=== PATIENT | female | born 1985 | race American Indian/Alaskan Native ===

== ENCOUNTER 2017-05-21 09:11 | Outpatient (CLI) | payer OTHER ==
--- NOTE | 2017-05-21 11:00 | Ultrasound Report ---
ULTRASOUND PELVIC COMPLETE ULTRASOUND TRANSVAGINAL HISTORY: Abnormal uterine and vaginal bleeding. COMPARISON: 11/12/15. TECHNIQUE: Transabdominal and transvaginal ultrasound with color doppler interrogation. FINDINGS: Uterus: The uterus is retroflexed. The uterus measures 7.5 x 4.8 x 6.6 cm. No uterine mass is identified. Normal cervix. Endometrium: 3.3 mm. No evidence for endometrial mass, polyp or fluid collection. Right ovary: 4.2 x 1.9 x 3.0 cm. Left ovary: 3.2 x 2.0 x 3.7 cm. The ovarian follicles are peripherally located and are slightly prominent which can be associated with polycystic ovarian syndrome. No pelvic fluid or mass is identified. Normal color doppler interrogation. IMPRESSION: Unremarkable transabdominal and transvaginal pelvic ultrasounds. Findings suggestive of polycystic ovarian syndrome. No change since 11/12/15.
== END 2017-05-21 09:12 | disposition home or self-care (01) ==
LOC: US 09:11
PROVIDERS: ATTEND Obstetrics & Gynecology
DX: N93.8 Other specified abnormal uterine and vaginal bleeding (principal)
CPT/HCPCS: 76830; 76856

== ENCOUNTER 2018-01-06 07:33 | Day surgery (SDC) | payer OTHER ==
[2018-01-06] MEDS ORDERED: LACTATED RINGERS 1,000 ML IV ONE (08:07)
[2018-01-06] MEDS ORDERED: ZOFRAN IV PRN (08:52)
[2018-01-06] MEDS ORDERED: DILAUDID IV PRN (08:52)
[2018-01-06] MEDS ORDERED: DEMEROL IV PRN (08:52)
--- NOTE | 2018-01-06 08:57 | Short Stay Summary ---
Short Stay Documentation Date of service: 01/06/18 Narrative H&P: Pt is a 32yo BF presents for surgical evaluation and treatment of prolonged heavy vaginal bleeding unresponsive to hormonal therapy. She now presents for a Novasure endometrial ablation. - History Principal diagnosis: Menorrhagia H&P: obtained from office Past Medical History: No medical history Past Surgical History: No surgical history Social history: no significant social history, single - Allergies and Medications Current Medications: Allergies iodine Allergy (Verified 11/05/14 18:03) Swelling shellfish derived Allergy (Verified 01/05/18 12:27) Anaphylaxis Home Medications Medication Instructions Recorded Confirmed Last Taken Type Multivitamin [Multiple Vitamins] 1 each PO DAILY 01/05/18 01/06/18 01/05/18 History Active Medications Hydromorphone HCl (Dilaudid) 0.5 mg IV Q10MIN PRN PRN Reason: Pain , Severe (7-10) Lactated Ringer's (Lactated Ringers) 1,000 mls @ 75 mls/hr IV DIRECT SWAPNIL Meperidine HCl (Demerol) 25 mg IV ONCE PRN PRN Reason: Shivering Midazolam HCl (Versed) 2 mg IV PREOP NR Stop: 01/06/18 23:59 Ondansetron HCl (Zofran) 4 mg IV ONCE PRN PRN Reason: Nausea And Vomiting - Physical exam General appearance: no acute distress Integumentary: no rash HEENT: Atraumatic Lungs: Clear to auscultation Breasts: deferred Heart: Regular rate Gastrointestinal: normal Female Genitourinary: deferred Rectal Exam: deferred Extremities: no ischemia, No edema Neurological: Normal gait, Normal speech - Brief post op/procedure progress note Date of procedure: 01/06/18 Pre-op diagnosis: Dysfunctional uterine bleeding Post-op diagnosis: same Procedure: 1. Hysteroscopy 2. NovaSure endometrial ablation Anesthesia: MAC Findings: A slightly enlarged uterus with uterine cavity length at 6.5 cm uterine cavity width at 4.6 cm and 164 W of Power was used for 57 seconds to perform the ablation Surgeon: SUSANA HEAD Estimated blood loss: minimal Pathology: none Condition: stable - Hospital course Hospital course: Unremarkable. - Disposition Condition at discharge: Good Disposition: DC- TO HOME OR SELFCARE - Discharge Diagnoses (1) Dysfunctional uterine bleeding Status: Resolved Short Stay Discharge Plan Activity: no restrictions Diet: regular Follow up with: SUSANA HEAD MD [Primary Care Provider] - 14 Days Prescriptions: HYDROcodone/APAP 5-325 [[place] 5/325] 1 each PO Q6HR PRN #20 tablet PRN Reason: Pain
[2018-01-06 08:58] LABS: Hemoglobin 12.6 gm/dl (10.1-14.3)
[2018-01-06] MEDS ORDERED: LACTATED RINGERS 1,000 ML IV SCH (09:00)
[2018-01-06] MEDS ORDERED: ANCEF/STERILE WATER 2 GM/20 ML 2 GM/20 ML SYRINGE IV NR (09:00)
[2018-01-06] MEDS ORDERED: VERSED IV NR (09:00)
[2018-01-06] MEDS ORDERED: PEPCID IV ONE (09:02)
[2018-01-06] MEDS ORDERED: DIPRIVAN 10 MG/ML IV ONE (09:11)
[2018-01-06] MEDS ORDERED: XYLOCAINE MPF 2% ONE (09:11)
[2018-01-06] MEDS ORDERED: DECADRON ONE (09:13)
[2018-01-06] MEDS ORDERED: NACL 0.9% IR ONE (09:17)
--- NOTE | 2018-01-06 10:08 | Operative Report ---
Operative Report Operative Report: Date of procedure: 01/06/2018 Pre-operative diagnosis: Dysfunctional uterine bleeding Post-operative diagnosis: Same Procedure name(s): 1. Hysteroscopy 2. NovaSure endometrial ablation Surgeon: Noah Batista MD Electronics Lead: None Anesthesia: Gen. mask by Dr. Zavala EBL: Minimal less than 10 mL's Findings: A slightly enlarged uterus with lush amounts of endometrial tissue. Uterine cavity length was 6.5 cm, cavity width was 4.6 cm, and 164 W of Power was used to 57 seconds to perform the ablation. Procedure: After the patient was correctly identified, she was prepped and draped in usual sterile fashion and placed in the dorsolithotomy position. First the bladder was emptied using a straight catheter, and the speculum was placed in vaginal vault. The anterior lip of the cervix was grasped using single-tooth tenaculum, and the cervical os was sequentially dilated. The hysteroscope was introduced into the endometrial cavity showing lush amounts of endometrial tissue. There was no submucosal fibroids noted. The hysteroscope was then removed and replaced with the NovaSure device. The uterine length was 6.5 cm, and the cavity width was 4.6 cm and 164 W of Power was used to 57 seconds to perform the ablation. After the ablation was complete, the NovaSure device was removed and replaced with a hysteroscope that confirmed excellent ablation of endometrial cavity. At this point all instruments were removed from the vagina. The patient tolerated the procedure well and was transported to recovery in stable condition.
[2018-01-06 10:31] VITALS: BP 104/54
--- NOTE | 2018-01-06 10:35 | Anesthesia Consultation ---
Anesthesia Consult and Med Hx Date of service: 01/06/18 - Airway Anesthetic Teeth Evaluation: Good ROM Head & Neck: Adequate Mental/Hyoid Distance: Adequate Mallampati Class: Class I Intubation Access Assessment: Good - Pulmonary Exam CTA: Yes - Pre-Operative Health Status ASA Pre-Surgery Classification: ASA2 Proposed Anesthetic Plan: General - Pulmonary Hx Asthma: Yes (As a child) COPD: No - Cardiovascular System Hx Hypertension: No Hx Heart Attack/AMI: No Hx Pacemaker: No Hx Internal Defibrillator: No - Central Nervous System Hx Seizures: No Hx Psychiatric Problems: No - Endocrine Hx Renal Disease: No Hx Liver Disease: No - Hematic Hx Anemia: Yes Hx Sickle Cell Disease: No - Other Systems Hx Cancer: No
--- NOTE | 2018-01-06 10:35 | Anesthesia Day of Surgery ---
Anesthesia Day of Surgery - Day of Surgery Patient Examined: Yes Patient H&P Reviewed: Yes Patient is NPO: Yes
--- NOTE | 2018-01-06 10:36 | Post Anesthesia Evaluation ---
- Post Anesthesia Evaluation Patient Participated: Yes Airway Patent: Yes Stable Respiratory Function: Yes Nausea/Vomiting: Yes (given zofran, reglan in PACU) Temp > 96.8F: Yes Pain Manageable: Yes Adequeate Hydration: Yes Anesthesia Complications: No
[2018-01-06] MEDS ORDERED: NORCO 5/325 PO PRN (10:47)
== END 2018-01-06 07:34 | disposition home or self-care (01) ==
LOC: OR 07:33
PROVIDERS: ATTEND Obstetrics & Gynecology
DX: N85.2 Hypertrophy of uterus (principal); G43.909 Migraine, unspecified, not intractable, without status migrainosus; J45.909 Unspecified asthma, uncomplicated; K21.9 Gastro-esophageal reflux disease without esophagitis; Z86.2 Personal history of diseases of the blood and blood-forming organs and certain disorders involving the immune mechanism; Z98.890 Other specified postprocedural states; Z91.041 Radiographic dye allergy status; Z91.013 Allergy to seafood; Z79.899 Other long term (current) drug therapy
CPT/HCPCS: 36415; 58563; 85014; 85018; A4217; J0690; J1100; J1170; J2250; J2405; J2704; J7120